=== PATIENT | male | born 1970 | race Caucasian/White ===

== ENCOUNTER 2018-02-19 20:31 | Emergency (ER) | payer SELFPAY ==
[~2018-02-19] VITALS: Ht 188 cm; Wt 102.1 kg
--- NOTE | 2018-02-19 20:31 | NUR ---
PT BOOM ALS. TAKEN TO BED 1
[2018-02-19 20:37] VITALS: BP 124/79
--- NOTE | 2018-02-19 20:40 | NUR ---
47 YO M BIBA W/C/O GENERLIZED WEAKNESS X 45MIN. PT STATES FEELING "LIGHTHEADED" WHEN RISING, AND SAT BACK DOWN. PT WAS RECENTLY RELEASED FOR[facility] X 3DAYS AGO. PT DENIES ANY DIZZINESS AT THIS THIS TIME. SKIN SLIGHTLY JAUNDIS. ACITIES NOTED WITH 68CM GIRTH. DELAYED CAP REFILL, O2 STAT AT 98% ON RA. AAOX4 SPEAKING IN FULL AND COMPLEATE SENTENCES. DIMINISHED LUNG SOUNDS IN BILAT BACES NOTED, PT DENIES ANY SOB, BILAT LOWEER EXTREMITIE WITH PITTING EDEMA. PT DENIES ANY N/V/D, CP. ER MADE AWARE. PT PLACED ON MONITOR AND IN GOWN. HOB UP, X1 SIDERAIL. WILL CONTINUE TO MONITOR.
--- NOTE | 2018-02-19 21:00 | NUR ---
Dr. Coreas evaluating patient at bedside.
--- NOTE | 2018-02-19 21:13 | NUR ---
LAB AT BEDSIDE FOR BLOOD DRAW
--- NOTE | 2018-02-19 21:14 | NUR ---
EMT AT BEDSIDE FOR EKG
--- NOTE | 2018-02-19 21:15 | NUR ---
EKG PERFORMED AT BEDSIDE WITH FAMILY PRESENT. PT COVERED IN GOWN AND BLANKET DURING PROCEDURE.
[2018-02-19] MEDS ORDERED: FURO-570 PO (21:19)
[2018-02-19] MEDS ORDERED: SPIR50TA PO (21:19)
[2018-02-19] MEDS ORDERED: CIPR500T4 PO (21:19)
[2018-02-19 21:30] LABS: BASOPHILS # (AUTO) 0.1 K/uL (0.00-0.22); BASOPHILS % (AUTO) 0.6 % (0.0-2.0); EOSINOPHILS # (AUTO) 0.1 K/uL (0-0.4); EOSINOPHILS % (AUTO) 0.6 % (0.0-4.0); HEMATOCRIT 35.7 % (36-52); HEMOGLOBIN 11.7 g/dL (12.0-18.0); LYMPHOCYTES # (AUTO) 1.4 K/uL (2.0-11.5); LYMPHOCYTES % (AUTO) 9.5 % (20.5-51.1); MEAN CORPUSCULAR HEMOGLOBIN 35 pg (27-31); MEAN CORPUSCULAR HGB CONC 33 g/dL (33-37); MEAN CORPUSCULAR VOLUME 106.1 fL (80-94); MONOCYTES # (AUTO) 1.1 K/uL (0.8-1.0); MONOCYTES % (AUTO) 7.7 % (1.7-9.3); NEUTROPHILS % (AUTO) 81.6 % (42.2-75.2); PLATELET COUNT (AUTO) 103 K/uL (140-450); RED BLOOD CELL COUNT(AUTO) 3.36 MIL/uL (4.20-6.10); RED CELL DISTRIBUTION WIDTH 18.2 % (11.6-13.7); WHITE BLOOD COUNT (AUTO) 14.7 K/uL (4.8-10.8)
[2018-02-19 21:43] LABS: ANION GAP 15.4 (8-16); CARBON DIOXIDE 28.1 mmol/L (21-32); CREATININE 2.1 mg/dL (0.7-1.3); POTASSIUM 4.5 mmol/L (3.5-5.1)
[2018-02-19 21:49] LABS: ALBUMIN 2.7 g/dL (3.4-5.0); TOTAL BILIRUBIN 5.8 mg/dL (0.0-1.0)
[2018-02-19] MEDS ORDERED: NACL 0.9% 500 ML IV ONE (22:00)
--- NOTE | 2018-02-19 22:00 | NUR ---
PT RESTING TALKING WITH FAMILY AT BEDSIDE IN NO APPEARENT DISTRESS
[2018-02-19 22:40] VITALS: BP 112/73
--- NOTE | 2018-02-19 22:40 | NUR ---
Patient discharged with v/s stable. Written and verbal after care instructions given and explained. Patient verbalized understanding. Ambulatory with steady gait. All questions addressed prior to discharge. Advised to follow up with PMD.
== END 2018-02-19 22:40 | disposition home or self-care (01) ==
LOC: MED 20:31
DX: R42 Dizziness and giddiness (principal); E86.0 Dehydration; Z79.899 Other long term (current) drug therapy
CPT/HCPCS: 36415; 80053; 83690; 84484; 85025; 93005; 96360; 99284; J7030

== ENCOUNTER 2018-04-18 12:49 | Emergency (ER) | payer MEDICAID ==
[~2018-04-18] VITALS: Ht 185.4 cm; Wt 118.8 kg
[~2018-04-18 12:49] MED LIST: CIPR500T4 PO; FURO-570 PO; SPIR50TA PO
--- NOTE | 2018-04-18 12:52 | NUR ---
PT BOOM BUCK, CURRENTLY AWAITING BED
[2018-04-18 12:58] VITALS: BP 110/64
--- NOTE | 2018-04-18 13:09 | NUR ---
PT TAKEN TO BED 5 BY EMS CREW
[2018-04-18] MEDS ORDERED: ATA10 PO (13:14)
--- NOTE | 2018-04-18 13:20 | NUR ---
AAO X4 47 YR OLD M FROM HOME WITH C/O WEAK, DIZZY AND LIGHT HEADED TODAY. DENIES NAUSEA/VOMITING. PER PATIENT,TOOK 80MG LASIX PRIOR TO ER. S.TACH. WITH PVC. DENIES PAIN. HX: LIVER CIRRHOSIS.
[2018-04-18] MEDS ORDERED: SPIR50TA PO (13:27)
[2018-04-18 15:00] LABS: HEMOGLOBIN 12.3 g/dL (12.0-18.0); LYMPHOCYTES # (AUTO) 0.3 K/uL (2.0-11.5); MEAN CORPUSCULAR HEMOGLOBIN 33 pg (27-31); NEUTROPHILS # (AUTO) 1.4 K/uL (1.8-7.7); WHITE BLOOD COUNT (AUTO) 2.2 K/uL (4.8-10.8)
[2018-04-18 15:04] LABS: BASOPHILS % (AUTO) 0.6 % (0.0-2.0); EOSINOPHILS % (AUTO) 0.2 % (0.0-4.0); HEMATOCRIT 36.8 % (36-52); LYMPHOCYTES % (AUTO) 14.6 % (20.5-51.1); MEAN CORPUSCULAR HGB CONC 33 g/dL (33-37); MEAN CORPUSCULAR VOLUME 99.3 fL (80-94); MONOCYTES # (AUTO) 0.5 K/uL (0.8-1.0); MONOCYTES % (AUTO) 21.2 % (1.7-9.3); NEUTROPHILS % (AUTO) 63.4 % (42.2-75.2); PLATELET COUNT (AUTO) 95 K/uL (140-450); RED CELL DISTRIBUTION WIDTH 15.5 % (11.6-13.7)
[2018-04-18 15:15] LABS: ANION GAP 9.2 (8-16); CARBON DIOXIDE 29.4 mmol/L (21-32); CREATININE 1.4 mg/dL (0.7-1.3); POTASSIUM 3.6 mmol/L (3.5-5.1)
[2018-04-18 15:21] LABS: ALBUMIN 2.3 g/dL (3.4-5.0); TOTAL BILIRUBIN 3.3 mg/dL (0.0-1.0)
[2018-04-18 16:06] VITALS: BP 112/63
--- NOTE | 2018-04-18 16:06 | NUR ---
LEFT AC 18GA IV removed, catheter intact and site benign. Applied folded 4x4 gauze and tape to stop bleeding.
== END 2018-04-18 16:06 | disposition home or self-care (01) ==
LOC: MED 12:49
DX: K74.60 Unspecified cirrhosis of liver (principal); D72.819 Decreased white blood cell count, unspecified; D69.6 Thrombocytopenia, unspecified; Z79.899 Other long term (current) drug therapy
CPT/HCPCS: 36415; 80053; 82948; 84484; 85025; 93005; 99284; 99285

== ENCOUNTER 2018-09-01 20:25 | Emergency (ER) | payer MEDICAID, OTHER ==
[~2018-09-01] VITALS: Ht 185.4 cm; Wt 117.9 kg
[2018-09-01 20:25] VITALS: BP 152/80
[~2018-09-01 20:25] MED LIST changes: +ATA10 PO; -CIPR500T4 PO
--- NOTE | 2018-09-01 20:30 | NUR ---
PT TRIAGED, SENT TO LOBBY AWAITING FOR BED VIA WHEELCHAIR
--- NOTE | 2018-09-01 22:07 | NUR ---
PT TAKEN TO BED 4.
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
--- NOTE | 2018-09-01 22:28 | NUR ---
DR. HARTMAN BEDSIDE EVALUATING PT
[2018-09-01] MEDS ORDERED: HYDROcodone/APAP 5/325 MG 1 TAB TAB PO ONE (22:50)
--- NOTE | 2018-09-01 22:55 | NUR ---
LAB AT BEDSIDE.
--- NOTE | 2018-09-01 23:00 | NUR ---
PT TAKEN TO CT VIA WC.
[2018-09-01 23:08] LABS: BASOPHILS % (AUTO) 0.8 % (0.0-2.0); EOSINOPHILS # (AUTO) 0.1 K/uL (0-0.4); EOSINOPHILS % (AUTO) 1.6 % (0.0-4.0); HEMATOCRIT 37.2 % (36-52); HEMOGLOBIN 12.5 g/dL (12.0-18.0); LYMPHOCYTES # (AUTO) 1.3 K/uL (2.0-11.5); MEAN CORPUSCULAR HEMOGLOBIN 33 pg (27-31); MEAN CORPUSCULAR HGB CONC 34 g/dL (33-37); MEAN CORPUSCULAR VOLUME 98.3 fL (80-94); MONOCYTES # (AUTO) 0.4 K/uL (0.8-1.0); MONOCYTES % (AUTO) 7.5 % (1.7-9.3); NEUTROPHILS # (AUTO) 3.3 K/uL (1.8-7.7); NEUTROPHILS % (AUTO) 64.1 % (42.2-75.2); PLATELET COUNT (AUTO) 112 K/uL (140-450); RED BLOOD CELL COUNT(AUTO) 3.78 MIL/uL (4.20-6.10); RED CELL DISTRIBUTION WIDTH 14.8 % (11.6-13.7); WHITE BLOOD COUNT (AUTO) 5.1 K/uL (4.8-10.8)
[2018-09-01 23:10] LABS: APPEARANCE,URINE CLEAR (CLEAR); BILIRUBIN,URINE NEGATIVE (NEGATIVE); BLOOD, URINE NEGATIVE (NEGATIVE); COLOR,URINE YELLOW (YELLOW); LEUKOCYTE ESTERASE ,URINE NEGATIVE (NEGATIVE); NITRITE, URINE NEGATIVE (NEGATIVE); UGLUCOSE NEGATIVE (NEGATIVE)
--- NOTE | 2018-09-01 23:13 | NUR ---
PT RETURNED FROM CT VIA WHEELCHAIR
[2018-09-01 23:26] LABS: ANION GAP 7.2 (8-16); CARBON DIOXIDE 29.8 mmol/L (21-32)
[2018-09-01 23:32] LABS: ALBUMIN 2.8 g/dL (3.4-5.0); TOTAL BILIRUBIN 2.2 mg/dL (0.0-1.0)
[2018-09-02 01:04] VITALS: BP 132/75
--- NOTE | 2018-09-02 01:04 | NUR ---
Patient discharged with v/s stable. Written and verbal after care instructions given and explained. Patient alert, oriented and verbalized understanding of instructions. Ambulatory with steady gait. All questions addressed prior to discharge. ID band removed. Patient advised to follow up with PMD. Rx of [place] and Zofran given. Patient educated on indication of medication including possible reaction and side effects. Opportunity to ask questions provided and answered.
== END 2018-09-02 01:04 | disposition home or self-care (01) ==
LOC: MED 20:25
DX: R10.31 Right lower quadrant pain (principal); Z79.899 Other long term (current) drug therapy
CPT/HCPCS: 36415; 80053; 81003; 85025; 99284